=== PATIENT | male | born 1960 | race Caucasian/White ===

== ENCOUNTER 2018-09-04 11:36 | Day surgery (SDC) | payer BC ==
[2018-09-04] VITALS (22 sets, daily range): BP systolic 135–162; BP diastolic 64–93
[~2018-09-04] VITALS: Ht 177.8 cm; Wt 95.3 kg
[~2018-09-04 11:36] MED LIST: NO HOME MEDS; cefazolin/dext.iso 2gm/100 ML IV ONE; famotidine 20mg tablet PO ONE; ringers solution, lacted 1,000 ML IV SCH
[2018-09-04 12:50] LABS: BASOPHILS % (AUTO) 0.5 % (0-1); EOSINOPHILS # (AUTO) 0.2 X10'3 (0-0.9); EOSINOPHILS % (AUTO) 2.6 % (0-6); LYMPHOCYTES # (AUTO) 1.6 X10'3 (1.1-4.8); LYMPHOCYTES % (AUTO) 21.4 % (21-51); MEAN CORPUSCULAR HEMOGLOBIN 30.5 PG (27.0-31.0); MEAN CORPUSCULAR HGB CONC 34.3 g/dL (33.0-36.5); MEAN PLATELET VOLUME 6.9 FL (7.4-10.4); MONOCYTES # (AUTO) 0.5 X10'3 (0-0.9); NEUTROPHILS # (AUTO) 5.2 X10'3 (1.8-7.7); NEUTROPHILS % (AUTO) 68.5 % (42-75); PRE OP HEMATOCRIT 48.5 % (42.0-52.0); PRE OP HEMOGLOBIN 16.6 g/dL (14.0-17.9); PRE OP PLATELET COUNT 177 X10'3 (140-440); RED BLOOD COUNT 5.44 X10'6 (4.70-6.10); RED CELL DISTRIBUTION WIDTH 14.4 % (11.5-14.5)
[2018-09-04 13:03] LABS: ALBUMIN 3.8 G/DL (3.4-5.0); ALKALINE PHOSPHATASE 74 IU/L (46-116); BLOOD UREA NITROGEN 15 MG/DL (7-18); BUN/CREATININE RATIO 11.6 (5.4-32.0); CALCIUM 8.8 MG/DL (8.5-10.1); CHLORIDE 104 MMOL/L (99-107); CREATININE 1.29 MG/DL (0.60-1.10); PRE OP ALT 29 U/L (30-65); PRE OP ANION GAP 11 (8-16); PRE OP AST 13 U/L (10-37); PRE OP BILIRUB, TOTAL 0.6 MG/DL (0.0-1.0); PRE OP GLUCOSE 96 MG/DL (70-104); PRE OP SODIUM 140 MMOL/L (135-145); TOTAL CARBON DIOXIDE 25.4 MMOL/L (24-32); TOTAL PROTEIN 7.7 G/DL (6.4-8.2); eGFR 57 ML/MIN
[2018-09-04] MEDS ORDERED: BUPIVACAINE liposomal/PF 13.3 MG/ML vial IM ONE (14:53)
[2018-09-04] MEDS ORDERED: BUPIVAcaine/PF 2.5mg/ml (0.25%) 10ml vial ONE (14:53)
[2018-09-04] MEDS ORDERED: BUPIVAcaine/PF 2.5 mg/ml (0.25%) 30ml vial ONE (15:18)
[2018-09-04 16:00] LABS: CLARITY,URINE SLIGHTLY CLOUDY (Clear); COLOR,URINE YELLOW (Yellow); GLUCOSE, URINE NEGATIVE (Neg); KETONES,URINE NEGATIVE (Neg); LEUKOCYTE ESTERASE ,URINE SMALL (Neg); NITRITES, URINE NEGATIVE (Neg); OCCULT BLOOD,URINE NEGATIVE (Neg); PH,URINE 6.5 (4.8-8.0); PROTEIN,URINE NEGATIVE (Neg); UROBILINOGEN,URINE 0.2 E.U/dL (0.2-1.0)
[2018-09-04 16:04] LABS: UA COLLECTION TYPE CLN CATCH MIDSTREAM
[2018-09-04 16:11] LABS: HYALINE CASTS 0-3 /LPF (NEGATIVE); MUCUS STRANDS FEW /LPF (Neg); SQUAMOUS EPITHELIAL CELL,UR MODERATE /LPF (FEW); WBC,URINE 30-50 /HPF (0-4)
[2018-09-04 16:12] LABS: BACTERIA,URINE 2+ /HPF (Neg); WBC CLUMPS,URINE MODERATE /HPF (NEGATIVE)
[2018-09-04] MEDS ORDERED: fentaNYL/PF 50MCG/1 ML 2ML syringe ONE ×2 (16:12→17:24)
[2018-09-04] MEDS ORDERED: midazolam 2 mg/2 ml injection ONE (16:12)
[2018-09-04] MEDS ORDERED: sevoflurane 250ml liquid IH ONE (16:13)
[2018-09-04] MEDS ORDERED: rocuronium 10mg/ml inj IV ONE (16:19)
[2018-09-04] MEDS ORDERED: glycopyrrolate 0.2mg/ml inj ONE (16:20)
[2018-09-04] MEDS ORDERED: ondansetron/PF 4mg/2ml inj ONE (16:20)
[2018-09-04] MEDS ORDERED: dexamethasone sod phosphate 4mg/ml inj. ONE (16:20)
[2018-09-04] MEDS ORDERED: neostigmine methylsulfate 1 MG/ML 10ml vial ONE (16:20)
[2018-09-04] MEDS ORDERED: LIDOcaine 2% (20mg/ml) 5ml vial ONE (16:20)
[2018-09-04] MEDS ORDERED: propofol inj 20 ML IV ONE (16:20)
[2018-09-04] MEDS ORDERED: ringers solution, lacted 1,000 ML IV SCH (16:31)
[2018-09-04] MEDS ORDERED: labetalol 20mg/4ml (5mg/ml) syringe IV PRN (16:35)
[2018-09-04] MEDS ORDERED: fentaNYL/PF 50MCG/1 ML 2ML syringe IV PRN ×2 (16:35)
[2018-09-04] MEDS ORDERED: ondansetron/PF 4mg/2ml inj IV PRN (16:35)
[2018-09-04] MEDS ORDERED: morphine 4 MG/ML inj SYRINge IV PRN (16:35)
[2018-09-04] MEDS ORDERED: hydrALAZINE 20mg/ml inj. IV PRN (16:35)
[2018-09-04] MEDS: ceFAZolin 1000mg inj ONE ×2 (16:49→16:50)
[2018-09-04] MEDS ORDERED: morphine 10mg/ml inj. ONE (17:59)
[2018-09-04] MEDS ORDERED: bacitracin 15gm ointment TP ONE (18:02)
--- NOTE | 2018-09-04 18:22 | NUR ---
Received from OR via BIN, accompanied by Anesthesiologist DR KUO and report given by Anesthesiologist. PT BREANNA, MEGHNA'S, ABDOMEN W/3 LAP SITES W/BANDAIDS CDI. Addendum: 09/04/18 at 1841 by Bell Duke RN Amended: Links added.
[2018-09-04] MEDS: morphine 4 MG/ML inj SYRINge IV PRN ×3 (18:45→21:41)
[2018-09-04] MEDS ORDERED: HYDROcodone/acetaminophen 10/325mg tab PO ONE (20:05)
--- NOTE | 2018-09-04 21:15 | NUR ---
PT UP AND OUT OF BED, ATTEMPTED TO VOID, UNSUCCESSFUL, PT WALING, STANDING FOR APPROX 15 MINUTES, PT BACK TO BED, PAIN INCREASED, 4 MG MORPHINE GIVEN W/IMPROVED RESULTS, BLADDER SCANNED PT FOR 173 ML URINE, IV REATTACHED AND INFUSING, PT DRINKING WATER, VSS. Addendum: 09/04/18 at 2214 by Bell Duke RN Amended: Links added.
--- NOTE | 2018-09-04 22:45 | NUR ---
PT UP AND OOB, VOID 65 ML'S ARIA URINE, BLADDER SCANNED FOR 185 ML URINE, CALL INTO DR MARSHALL UPDATED, ORDERS RECEIVED. 16 BENINESE LEGER [employer]HETER PLACED USING ASEPTIC TECHNIQUE, 385 ML'S URINE RETURN IN DRAINAGE BAG, LEGER CATHETER TEACHING AND TRAINING DONE W/PT AND PT'S S/O, BOTH VERBALIZE UNDERSTANDING, D/C INSTRUCTIONS GONE OVER AND GIVEN TO PT/PTS S/O, BOTH VERBALIZE UNDERSTANDING, PT D/CD TO HOME 0012. Addendum: 09/05/18 at 0026 by Bell Duke RN Amended: Links added.
[2018-09-04] MEDS ORDERED: LIDOcaine 2% 5ml jelly MM ONE (23:30)
== END 2018-09-05 00:22 | disposition home or self-care (01) ==
LOC: PAS 11:36
PROVIDERS: ATTEND Surgery
DX: K42.0 Umbilical hernia with obstruction, without gangrene (principal); K40.20 Bilateral inguinal hernia, without obstruction or gangrene, not specified as recurrent; Z82.49 Family history of ischemic heart disease and other diseases of the circulatory system; Z80.9 Family history of malignant neoplasm, unspecified
CPT/HCPCS: 36415; 49650; 49653; 80053; 81001; 85025; 87088; 93005; C1781; C9290; J0690; J1100; J2001; J2250; J2270; J2405; J2704; J2710; J3010; J3490; J7030; J7120; 87077; A4215; A4314; A4618; A6402; A7000